=== PATIENT | male | born 1990 | race Two or more races ===

== ENCOUNTER 2023-02-03 14:39 | Inpatient (IN) | payer OTHER ==
[~2023-02-03] VITALS: Ht 188 cm; Wt 204.1 kg
--- NOTE | 2023-02-03 15:19 | NUR ---
PACIENTE ALERTA Y ORIENTADO X 3. REFIERE ULCERA EN MUSLO DERECHO Y REFIERE QUE LA MISMA ESTA DRENANDO, REFIERE DOLOR EN AREA DE ESPLADA BAJA X CAIDA Y CANSANCIO.
[2023-02-03] MEDS ORDERED: METOPROLOL SUCC50 MG PO (15:24)
[2023-02-03] MEDS ORDERED: ZESTRIL5 MG (15:24)
[2023-02-03] MEDS ORDERED: PLAVIX75 MG (15:24)
[2023-02-03] MEDS ORDERED: ADVAIR HFA 230/12 GM IH (15:25)
[2023-02-03] MEDS ORDERED: WELLBUTRIN XL300 MG PO (15:25)
[2023-02-03] MEDS ORDERED: SEROQUEL400 MG PO (15:26)
[2023-02-03] MEDS ORDERED: NEURONTIN800 MG PO (15:26)
--- NOTE | 2023-02-03 16:54 | NUR ---
PTE MASCULINO EVALUADO POR . RN MONTOYA ORIENTA SOBRE ORDENES DE TX REFIERE COMPRENDER. COLECTA MUESTRAS DE LABORATORIOS, BAJO MEDIDAS ASEPTICAS. REALIZA EKG Y SE PRESENTA A MD PURCELL.
--- NOTE | 2023-02-04 00:48 | NUR ---
PTE ALERTA Y ORIENTADO X 3 ESFERAS EN CAMA CON BARANDAS ELEVADAS,SIN FAMILIAR AL MOMENTO DE LA ARIEL,SIN DIFICULTAD RESP NI DOLOR AL MOMENTO.AREA DE VENOPUNCION PATENTE Y LILIAN DE EDEMA CON FLUIDOS DE MANTENIMIENTO.SE TAHIRA BAJO OBSERVACION.
--- NOTE | 2023-02-04 08:42 | NUR ---
PTE DE TURNO ANTERIOR ALERTA Y ORIENTADO X3 PTE SE OBSERVA CON BUEN PATRON RESPIRATORIO, AFEBRIL Y NO REFIERE DOLOR. PTE ACOSTADO EN ALYCE EN COMPANIA DE FAMILIAR. ALYCE EN MARTÍNEZ NIVEL MAS BAJO Y BARANDAS ELEVADAS POR MARTÍNEZ SEGURIDAD. ANGIO PATENTE Y AREA LILIAN DE EDEMA Y ERITEMA. BAJANDO UN .9 DE NSS A 120ML/HR. PTE EN AREA DE OBSERVACION.
[2023-02-04] MEDS ORDERED: NORFLEX100MG (15:53)
[2023-02-04] MEDS ORDERED: ESTAZOLAM2 MG (15:53)
[2023-02-04] MEDS ORDERED: ALLERGY RELIEF10 MG (15:53)
[2023-02-04] MEDS ORDERED: FINASTERIDE5 MG (15:53)
[2023-02-04] MEDS ORDERED: FOLIC ACID1 MG (15:53)
[2023-02-04] MEDS ORDERED: CLONAZEPAM2 MG (15:53)
[2023-02-04] MEDS ORDERED: FUROSEMIDE40 MG (15:53)
[2023-02-04] MEDS ORDERED: MONTELUKAST SOD10 MG (15:54)
[2023-02-04] MEDS ORDERED: GLIMEPIRIDE1 M1 (15:54)
[2023-02-04] MEDS ORDERED: SYNTHROID88 MCG (15:54)
[2023-02-04] MEDS ORDERED: METFORMIN HCL850 M1 (15:54)
[2023-02-04] MEDS ORDERED: OMEPRAZOLE20 MG (15:54)
[2023-02-07] MEDS ORDERED: ZESTRIL10 M1 PO (13:58)
[2023-02-07] MEDS ORDERED: INTEGRA PLUS C1 EACH PO (13:59)
[2023-02-07] MEDS ORDERED: TOPROL XL50 M1 PO (13:59)
[2023-02-07] MEDS ORDERED: FAMOTIDINE20 MG PO (13:59)
== END 2023-02-07 18:24 | disposition home or self-care (01) | DRG 580 ==
LOC: ER 14:39 → MEDI 02-04 11:53
PROVIDERS: ADMIT Internal Medicine; ATTEND Internal Medicine
PROC: 0JBN3ZZ Excision of Right Lower Leg Subcutaneous Tissue and Fascia, Percutaneous Approach (ICD-10-PCS; principal; 2023-02-04)
DX: L03.115 Cellulitis of right lower limb (principal); L97.118 Non-pressure chronic ulcer of right thigh with other specified severity; B95.62 Methicillin resistant Staphylococcus aureus infection as the cause of diseases classified elsewhere; D72.828 Other elevated white blood cell count